=== PATIENT | male | born 1980 | race Hispanic/Latino ===

== ENCOUNTER 2017-10-23 13:21 | Emergency (ER) | payer SELFPAY ==
[2017-10-23] MEDS ORDERED: ALBUTEROL 2.5 MG/3 ML NEB SOL ONE (14:56)
[2017-10-23] MEDS ORDERED: IPRATROPIUM BROM 0.5MG/2.5ML ONE (14:57)
[2017-10-23] MEDS ORDERED: IBUPROFEN 400 MG TAB ONE (15:37)
--- NOTE | 2017-10-23 15:58 | RAD REPORT ---
EXAM DESCRIPTION: RAD - Chest Pa And Lat (2 Views) - 10/23/2017 3:14 pm CLINICAL HISTORY: Fever, cough COMPARISON: None. TECHNIQUE: PA and lateral views of the chest were obtained. FINDINGS: The lungs are underinflated. Posterior lung base stranding could be atelectasis or infiltr ate. No consolidation. No failure or volume overload. Heart size is normal and central vasculature is within normal limits. No pleural effusion or pneumothorax seen. No acute bony finding noted. No aortic abnormality. IMPRESSION: Atelectasis versus interstitial infiltrate posterior gutter each lung base. No failure or volume overload.
--- NOTE | 2017-10-23 16:11 | EDPHYS ---
Physician Documentation [facility] Name: Juma Hassan Age: 37 yrs Sex: Male : 1980 Arrival Date: 10/23/2017 Time: 13:25 Bed 23 Private MD: ED Physician Gene Knapp HPI: 10/23 14:55 This 37 yrs old Male presents to ER via Ambulatory with complaints of cp PNEUMONIA. 14:55 The patient or guardian reports cough, with productive sputum, brown. cp 14:55 Onset: The symptoms/episode began/occurred 5 day(s) ago. Associated signs and symptoms: cp Pertinent positives: fever, sore throat, shortness of breath due to cough, Pertinent negatives: chest pain, diarrhea, vomiting. Severity of symptoms: in the emergency department the symptoms are unchanged despite home interventions. Historical: - Allergies: 13:40 PENICILLINS; hj - Home Meds: 13:40 None [Active]; hj - PMHx: 13:40 Asthma; hj - PSHx: 13:40 Vasectomy; hj - Immunization history:: Adult Immunizations up to date. - Social history:: Smoking status: Patient/guardian denies using tobacco, never smoked, Patient/guardian denies using alcohol, tobacco products. ROS: 15:00 Constitutional: Positive for chills, fever, Negative for poor PO intake. cp 15:00 Eyes: Negative for injury, pain, redness, and discharge. cp 15:00 ENT: Positive for sore throat, Negative for drainage from ear(s), ear pain, difficulty swallowing, difficulty handling secretions. 15:00 Cardiovascular: Negative for chest pain, edema. 15:00 Respiratory: Positive for cough, brown sputum, shortness of breath, Negative for hemoptysis. 15:00 Abdomen/GI: Positive for nausea, Negative for abdominal pain, diarrhea, constipation. 15:00 Skin: Negative for cellulitis, rash. 15:00 Neuro: Negative for altered mental status, headache, weakness. 15:00 All other systems are negative. Exam: 15:08 Constitutional: The patient appears in no acute distress, alert, awake, cp non-diaphoretic, non-toxic, well developed, well nourished. 15:08 Head/Face: Normocephalic, atraumatic. Eyes: Pupils equal round and reactive to light, cp extra-ocular motions intact. Lids and lashes normal. Conjunctiva and sclera are non-icteric and not injected. Cornea within normal limits. Periorbital areas with no swelling, redness, or edema. 15:08 ENT: External ear(s): are unremarkable, Ear canal(s): are normal, clear, TM's: dullness, bilaterally, Nose: is normal, Mouth: Lips: moist, Oral mucosa: moist, Posterior pharynx: Airway: no evidence of obstruction, patent, Tonsils: with erythema, no enlargement, no exudate, Uvula: midline, non-edematous, swelling, is not appreciated, erythema, that is mild, exudate, is not appreciated, Voice: is normal. 15:08 Neck: ROM/movement: is normal, is supple, without pain, no range of motions limitations, no meningismus, no nuchal rigidity, Lymph nodes: no appreciated lymphadenopathy. 15:08 Chest/axilla: Inspection: normal, Palpation: is normal, no crepitus, no tenderness. 15:08 Cardiovascular: Rate: tachycardic, Rhythm: regular, Pulses: Pulses are 2+ in right radial artery and left radial artery. Heart sounds: murmur, not appreciated, Edema: is not appreciated, JVD: is not appreciated. 15:08 Respiratory: the patient does not display signs of respiratory distress, Respirations: labored breathing, that is mild, intercostal retractions, are absent, shallow respirations, are not present, tachypnea, is not appreciated, Breath sounds: decreased breath sounds, are not appreciated, rhonchi, that are mild, are located in both bases, stridor, is not appreciated, + upper airway congestion. wheezing: is not appreciated. 15:08 Abdomen/GI: Inspection: abdomen appears normal, Bowel sounds: active, all quadrants, Palpation: abdomen is soft and non-tender, in all quadrants, rebound tenderness, is not appreciated, voluntary guarding, is not appreciated, involuntary guarding, is not appreciated. 15:08 Skin: cellulitis, is not appreciated, no rash present. 15:08 Neuro: Orientation: to person, place \T\ time. Mentation: lucid, able to follow commands, Cerebellar function: is grossly normal, Motor: moves all fours, strength is normal, Sensation: no obvious gross deficits, Gait: is steady, at a normal pace, without difficulty. Vital Signs: 13:40 BP 121 / 66; Pulse 115; Resp 18; Temp 100.7(O); Pulse Ox 98% on R/A; Weight 95.25 kg; hj Height 5 ft. 8 in. (172.72 cm); Pain 9/10; 14:35 BP 104 / 68; Pulse 110; Resp 18; Pulse Ox 95% on R/A; tl3 15:20 BP 98 / 67; Pulse 94; Resp 18; Pulse Ox 99% on Nebulizer Mask; tl3 16:30 BP 102 / 68; Pulse 109; Resp 18; Pulse Ox 100% ; tl3 13:40 Body Mass Index 31.93 (95.25 kg, 172.72 cm) hj MDM: 14:17 Patient medically screened. cp 15:00 Differential diagnosis: bronchitis, flu, URI, pneumonia, strep throat. cp 16:05 Data reviewed: vital signs, nurses notes, lab test result(s), radiologic studies, plain cp films. 16:05 Counseling: I had a detailed discussion with the patient and/or guardian regarding: the cp historical points, exam findings, and any diagnostic results supporting the discharge/admit diagnosis, lab results, radiology results, the need for outpatient follow up, a family practitioner, to return to the emergency department if symptoms worsen or persist or if there are any questions or concerns that arise at home. Response to treatment: the patient's symptoms have mildly improved after treatment, and as a result, I will discharge patient. 16:09 Antibiotic administration: The patient is discharged and will get outpatient antibiotics. 10/23 14:51 Order name: Influenza Screen (a \T\ B); Complete Time: 15:46 cp 10/23 15:46 Interpretation: Reviewed. cp 10/23 14:51 Order name: Strep; Complete Time: 15:46 cp 10/23 15:46 Interpretation: Reviewed. cp 10/23 14:51 Order name: XRAY Chest Pa And Lat (2 Views); Complete Time: 16:02 cp 10/23 15:46 Order name: Throat Culture EDMS 10/23 15:25 Order name: PO challenge; Complete Time: 15:44 cp Administered Medications: 15:02 Drug: Albuterol 2.5 mg Route: Inhalation; tl3 16:57 Follow up: Response: No adverse reaction tl3 15:03 Drug: AtroVENT Aerosol 0.5 mg Route: Inhalation; tl3 16:57 Follow up: Response: No adverse reaction tl3 15:44 Drug: Ibuprofen 800 mg Route: PO; tl3 16:15 Follow up: Response: No adverse reaction; Pain is decreased tl3 16:30 Drug: LevaQUIN 750 mg Route: PO; tl3 16:57 Follow up: Response: Medication administered at discharge. tl3 Disposition: 23:10 Co-signature as Attending Physician, Gene Knapp MD I agree with the assessment and kdr plan of care. Disposition: 10/23/17 16:10 Discharged to Home. Impression: Pneumonia due to other specified bacteria. - Condition is Stable. - Discharge Instructions: Pneumonia, Adult. - Prescriptions for Ibuprofen 800 mg Oral Tablet - take 1 tablet by ORAL route every 8 hours As needed take with food; 30 tablet. Levaquin 750 mg Oral Tablet - take 1 tablet by ORAL route once daily for 10 days continue afternoon of 10-24-2017; 9 tablet. Tessalon Perles 100 mg Oral Capsule - take 2 capsule by ORAL route every 8 hours As needed; 30 capsule. Albuterol Sulfate 90 mcg/actuation - inhale 1-2 puff by INHALATION route every 4-6 hours; 1 Inhaler. - Medication Reconciliation Form, Thank You Letter, Antibiotic Education, Prescription Opioid Use form. - Follow up: Private Physician; When: 2 - 3 days; Reason: Recheck today's complaints. - Problem is new. - Symptoms have improved. Signatures: Dispatcher [employer] EDMI Gene Knapp MD MD [facility] Terry Stubbs RN RN Harley Reed PA PA cp Lowrey, Tammy, SONALI RN tl3
--- NOTE | 2017-10-23 16:11 | ER ---
Nurse's Notes [facility] Name: Juma Hassan Age: 37 yrs Sex: Male : 1980 Arrival Date: 10/23/2017 Time: 13:25 Bed 23 Private MD: Diagnosis: Pneumonia due to other specified bacteria Presentation: 10/23 13:38 Presenting complaint: Patient states: i went to the urgent care today, temp of 103, hj hard to breathe, cough, fever and chills started Tuesday; reports nausea;. Transition of care: patient was not received from another setting of care. Onset of symptoms was October 23, 2017. Care prior to arrival: None. 13:38 Method Of Arrival: Ambulatory hj 13:38 Acuity: THAIS 3 hj Triage Assessment: 13:40 General: Appears in no apparent distress. uncomfortable, Behavior is calm, cooperative, hj appropriate for age. Pain: Complains of pain in chest. Historical: - Allergies: 13:40 PENICILLINS; hj - Home Meds: 13:40 None [Active]; hj - PMHx: 13:40 Asthma; hj - PSHx: 13:40 Vasectomy; hj - Immunization history:: Adult Immunizations up to date. - Social history:: Smoking status: Patient/guardian denies using tobacco, never smoked, Patient/guardian denies using alcohol, tobacco products. Screenin:35 Abuse screen: Denies threats or abuse. Nutritional screening: No deficits noted. tl3 Tuberculosis screening: No symptoms or risk factors identified. Fall Risk None identified. Assessment: 14:35 General: Appears uncomfortable, well groomed, well developed, well nourished, Behavior tl3 is calm, cooperative, appropriate for age, restless. Pain: Complains of pain in anterior aspect of right upper chest, anterior aspect of left upper chest and mid-sternal area Pain currently is 9 out of 10 on a pain scale. Neuro: Level of Consciousness is awake, alert, obeys commands. Cardiovascular: Heart tones S1 S2 present Capillary refill < 3 seconds in bilateral fingers Patient's skin is warm and dry. Respiratory: Airway is patent Trachea midline Respiratory effort is even, labored, Respiratory pattern is regular, symmetrical, Sputum is thick, bloody green. GI: No signs and/or symptoms were reported involving the gastrointestinal system. Abdomen is round. : No signs and/or symptoms were reported regarding the genitourinary system. EENT: No signs and/or symptoms were reported regarding the EENT system. Derm: No signs and/or symptoms reported regarding the dermatologic system. Musculoskeletal: No signs and/or symptoms reported regarding the musculoskeletal system. 15:20 Reassessment: No changes from previously documented assessment. Patient and/or family tl3 updated on plan of care and expected duration. Pain level reassessed. Patient is alert, oriented x 3, equal unlabored respirations, skin warm/dry/pink. pt on neb treatment just returned from x-ray. 16:30 Reassessment: Patient appears in no apparent distress at this time. Patient and/or tl3 family updated on plan of care and expected duration. Pain level reassessed. Patient is alert, oriented x 3, equal unlabored respirations, skin warm/dry/pink. Vital Signs: 13:40 BP 121 / 66; Pulse 115; Resp 18; Temp 100.7(O); Pulse Ox 98% on R/A; Weight 95.25 kg; hj Height 5 ft. 8 in. (172.72 cm); Pain 9/10; 14:35 BP 104 / 68; Pulse 110; Resp 18; Pulse Ox 95% on R/A; tl3 15:20 BP 98 / 67; Pulse 94; Resp 18; Pulse Ox 99% on Nebulizer Mask; tl3 16:30 BP 102 / 68; Pulse 109; Resp 18; Pulse Ox 100% ; tl3 13:40 Body Mass Index 31.93 (95.25 kg, 172.72 cm) ED Course: 13:25 Patient arrived in ED. tw3 13:40 Triage completed. hj 13:40 Arm band placed on right wrist. hj 14:17 Harley Alvarez PA is PHCP. cp 14:17 Gene Knapp MD is Attending Physician. cp 14:29 Kayla Luther, SONALI is Primary Nurse. tl3 14:35 Appears restless. Awaiting ED provider evaluation. tl3 14:35 Patient has correct armband on for positive identification. Bed in low position. Call tl3 light in reach. Adult w/ patient. 14:35 No provider procedures requiring assistance completed. tl3 15:14 XRAY Chest Pa And Lat (2 Views) In Process Unspecified. EDMS 15:19 X-ray(s) taken. tl3 16:05 X-ray completed. Patient tolerated procedure well. ap2 16:30 Patient did not have IV access during this emergency room visit. tl3 Administered Medications: 15:02 Drug: Albuterol 2.5 mg Route: Inhalation; tl3 16:57 Follow up: Response: No adverse reaction tl3 15:03 Drug: AtroVENT Aerosol 0.5 mg Route: Inhalation; tl3 16:57 Follow up: Response: No adverse reaction tl3 15:44 Drug: Ibuprofen 800 mg Route: PO; tl3 16:15 Follow up: Response: No adverse reaction; Pain is decreased tl3 16:30 Drug: LevaQUIN 750 mg Route: PO; tl3 16:57 Follow up: Response: Medication administered at discharge. tl3 Outcome: 16:10 Discharge ordered by . cp 16:30 Discharged to home ambulatory. tl3 16:30 Condition: stable 16:30 Discharge instructions given to patient, Instructed on discharge instructions, follow up and referral plans. medication usage, Demonstrated understanding of instructions, follow-up care, medications, Prescriptions given X 4. 16:59 Patient left the ED. tl3 Signatures: Dispatcher [employer] EDMS Terry Stubbs RN RN Harley Reed PA PA cp Wade, Tia tw3 Nica Jimenez Tammy, SONALI RN tl3 Corrections: (The following items were deleted from the chart) 13:43 13:40 Pulse 115bpm; Resp 18bpm; Pulse Ox 98% RA; Temp 100.7F Oral; 95.25 kg; Height 5 hj ft. 8 in.; BMI: 31.9; Pain 9/10; hj
[2017-10-23] MEDS ORDERED: levoFLOXacin 750 MG TAB ONE (16:21)
== END 2017-10-23 16:59 | disposition home or self-care (01) ==
LOC: ER 13:21
DX: J15.8 Pneumonia due to other specified bacteria (principal); Z88.0 Allergy status to penicillin
CPT/HCPCS: 71046; 87070; 87081; 87804; 99284